=== PATIENT | male | born 1975 | race Caucasian/White ===

== ENCOUNTER 2019-12-15 01:07 | Emergency (ER) | payer SELFPAY ==
[~2019-12-15] VITALS: Ht 172.7 cm; Wt 80.0 kg
[2019-12-15 01:10] VITALS: BP 154/74
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
[2019-12-15] MEDS ORDERED: OMNIPAQUE 350 MG/ML, 100ML BOTTLE ONE (01:30)
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
== END 2019-12-15 02:23 | disposition home or self-care (01) ==
LOC: ED 01:46
DX: U07.1 COVID-19 (principal); J18.9 Pneumonia, unspecified organism
CPT/HCPCS: 71275; 99285; Q9967